=== PATIENT | female | born 1950 | race Caucasian/White ===

== ENCOUNTER → 2017-11-06 | Outpatient (CLI) | payer OTHER ==
--- NOTE | 2017-11-06 09:28 | MRI ---
Exam: MRI of the brain without contrast History: 67-year-old female with headache, amnesia, and diplopia Comparison: None Technique: Multi sequence multi planar imaging was performed through the brain without administering intravenous contrast. Findings: Posterior fossa and supratentorial region are unremarkable with no intracranial hemorrhage, extracere bral fluid collections, or intracranial mass. Ventricles are symmetric in size and position with no m ass effect seen. No evidence of acute or chronic ischemic change. Visualized aspect of the paranasal sinuses and mastoid air cells are clear Impression: Unremarkable MRI of the brain. Reported By:
== END ==
LOC: RAD 08:27
PROVIDERS: ATTEND Internal Medicine
DX: H53.2 Diplopia (principal); Z80.8 Family history of malignant neoplasm of other organs or systems; R51 Headache; R41.3 Other amnesia
CPT/HCPCS: 70551